=== PATIENT | female | born 1965 | race African-American/Black ===

== ENCOUNTER 2025-03-08 08:12 | Emergency (ER) | payer BC, MEDICAID ==
[~2025-03-08] VITALS: Ht 172.7 cm; Wt 119.0 kg
[2025-03-08 08:24] VITALS: TEMP 36.9; O2SAT 98; O2SAT 99
[2025-03-08] MEDS ORDERED: METH-653 MT (08:40)
[2025-03-08 09:15] VITALS: BP 185/100; PULSE 97; RESP 18
[2025-03-08] MEDS: IBUPROFEN 600MG TABLET PO ONE (09:15)
== END 2025-03-08 10:11 | disposition home or self-care (01) ==
LOC: ER 08:12
DX: M25.512 Pain in left shoulder (principal); M54.50 Low back pain, unspecified; M54.2 Cervicalgia; E11.9 Type 2 diabetes mellitus without complications; I10 Essential (primary) hypertension; Z90.710 Acquired absence of both cervix and uterus; V49.9XXA Car occupant (driver) (passenger) injured in unspecified traffic accident, initial encounter; Y93.89 Activity, other specified; Y92.410 Unspecified street and highway as the place of occurrence of the external cause; Y99.8 Other external cause status
CPT/HCPCS: 73030; 99283